=== PATIENT | female | born 1970 ===

== ENCOUNTER 2018-05-09 08:29 | Outpatient (CLI) | payer SELFPAY | END 2018-05-09 08:30 | disposition home or self-care (01) | LOC: C.USIC 08:29 ==

== ENCOUNTER 2018-05-18 08:53 | Observation (INO) | payer SELFPAY ==
[2018-05-18 08:58] VITALS: BMI 24.7
[2018-05-18] MEDS ORDERED: Sodium Chloride 0.9% 1,000 ML IV ONE (09:24)
--- NOTE | 2018-05-18 09:50 | C.PDOC ---
History Of Present Illness 47 years old female presents to ED for complaints of abdominal pain associated with intermittent [id number] vomiting and diarrhea that began 8 days ago. Patient also reports vaginal bleeding and feeling dizziness this morning. Patient states she had her LMP 8 days ago and the vaginal bleeding hasn't stopped since then. Patient also states she is undergoing iron diffusion therapy. Denies any other complaints. Time Seen by Provider: 05/18/18 09:04 Chief Complaint (Nursing): GI Problem History Per: Patient History/Exam Limitations: no limitations Onset/Duration Of Symptoms: Hrs Current Symptoms Are (Timing): Still Present Radiation Of Pain To:: None Associated Symptoms: Nausea, Vomiting, Diarrhea. denies: Fever, Chills Exacerbating Factors: None Alleviating Factors: None Last Bowel Movement: Today Recent travel outside of the [place]: No Abnormal Vaginal Bleeding: Yes Past Medical History Reviewed: Historical Data, Nursing Documentation, Vital Signs Vital Signs: Last Vital Signs Temp 99 F 05/18/18 08:58 Pulse 57 L 05/18/18 08:58 Resp 18 05/18/18 08:58 BP 120/85 05/18/18 08:58 Pulse Ox 100 05/18/18 08:58 - Medical History PMH: Anemia, Gastritis Denies: Depression, Chronic Kidney Disease Surgical History: Endoscopy - [facility] Procedures ESOPHAGOGASTRODUODENOSCOPY [EGD] W/CLOSED BIOPSY (11/10/14) NEBULIZER THERAPY (09/27/14) VITAL CAPACITY DETERMIN (09/27/14) Family History: States: No Known Family Hx - Social History Hx Tobacco Use: No Hx Alcohol Use: No Hx Substance Use: No - Immunization History Hx Tetanus Toxoid Vaccination: No Hx Influenza Vaccination: No Hx Pneumococcal Vaccination: No Review Of Systems Except As Marked, All Systems Reviewed And Found Negative. Constitutional: Negative for: Fever, Chills Gastrointestinal: Positive for: Nausea, Vomiting, Abdominal Pain, Diarrhea Genitourinary: Positive for: Vaginal Bleeding Skin: Negative for: Rash Neurological: Negative for: Weakness, Numbness Physical Exam - Physical Exam Appears: Non-toxic, No Acute Distress, Other (Generalized weakness ) Skin: Normal Color, Warm, Dry, No Rash Head: Atraumatic, Normacephalic Eye(s): bilateral: Normal Inspection, PERRL, EOMI Oral Mucosa: Moist Neck: Normal ROM, Supple Chest: Symmetrical, No Tenderness Cardiovascular: Rhythm Regular, No Murmur Respiratory: Normal Breath Sounds, No Rales, No Rhonchi, No Wheezing Gastrointestinal/Abdominal: Bowel Sounds, Soft, Tenderness (Epigastric ), No Guarding, No Rebound Extremity: Normal ROM Extremity: Bilateral: Atraumatic, Normal Color And Temperature, Normal ROM Pulses: Left Radial: Normal, Right Radial: Normal Neurological/Psych: Oriented x3, Normal Speech Gait: Steady ED Course And Treatment - Laboratory Results Result Diagrams: 05/18/18 10:03 05/18/18 10:03 O2 Sat by Pulse Oximetry: 100 (RA) Pulse Ox Interpretation: Normal Medical Decision Making Medical Decision Making: Plan: * IV Fluids * Toradol * Pepcid * Zofran * Urine culture * Blood work * Urinalysis Progress: Discussed case with Patient's PMD (Dr. Hodges) which accepted patient for admission. Patient still has abdominal pain. Disposition Doctor Will See Patient In The: Hospital Counseled Patient/Family Regarding: Studies Performed, Diagnosis - Disposition Disposition: HOSPITALIZED Disposition Time: 13:50 Condition: STABLE - POA Present On Arrival: None - Clinical Impression Clinical Impression: Abdominal pain, Bandemia - Scribe Statement The provider has reviewed the documentation as recorded by the Omariibverónica Villatoro All medical record entries made by the Omariibverónica were at my direction and personally dictated by me. I have reviewed the chart and agree that the record accurately reflects my personal performance of the history, physical exam, medical decision making, and the department course for this patient. I have also personally directed, reviewed, and agree with the discharge instructions and disposition.
[2018-05-18] MEDS ORDERED: Sodium Chloride 0.9% 1,000 ML ONE (10:03)
[2018-05-18 10:15] LABS: BASO # 0.1 K/uL (0.0-0.2); BASO % 0.3 % (0.0-2.0); EOS # 0.1 K/uL (0.0-0.7); EOS % 0.4 % (0.0-4.0); HEMOGLOBIN 12.3 g/dL (11.0-16.0); LYMPH # 1.1 K/uL (1.0-4.3); LYMPH % 6.7 % (20.0-40.0); MEAN CORPUSCULAR HEMOGLOBIN 29.3 pg (27.0-31.0); MEAN CORPUSCULAR HGB CONC 33.7 g/dL (33.0-37.0); MEAN PLATELET VOLUME 7.7 fL (7.2-11.7); MONO % 6.5 % (0.0-10.0); NEUT # 13.6 K/uL (1.8-7.0); NEUT % 86.1 % (50.0-75.0); PLATELET COUNT 383 K/uL (130-400); RBC 4.19 Mil/uL (3.80-5.20); RED CELL DISTRIBUTION WIDTH 14.3 % (11.5-14.5); WHITE BLOOD COUNT 15.8 K/uL (4.8-10.8)
[2018-05-18 10:21] LABS: SQUAMOUS EPITHIAL 5 /hpf (0-5); URINE BACTERIA RARE (<OCC); URINE BILIRUBIN NEGATIVE (NEGATIVE); URINE BLOOD 2+ (NEGATIVE); URINE CLARITY Hazy (Clear); URINE COLOR Yellow (YELLOW); URINE GLUCOSE (UA) NORMAL (Normal); URINE LEUKOCYTE ESTERASE NEG Leu/uL (Negative); URINE PROTEIN 1+ mg/dL (NEGATIVE); URINE UROBILINOGEN NORMAL mg/dL (0.2-1.0)
[2018-05-18 10:40] LABS: BANDS 18 % (0-2); LYMPHOCYTE 5 % (20-40); MONOCYTE 5 % (0-10); NEUTROPHIL 69 % (50-75); PLATELET ESTIMATE NORMAL (NORMAL); REACTIVE LYMPHOCYTES 3 % (0-0); TOTAL CELLS COUNTED 100
[2018-05-18 10:43] LABS: ALB/GLOB RATIO 1.5 (1.0-2.1); ALBUMIN 4.2 g/dL (3.5-5.0); ALT/SGPT 29 U/L (9-52); AST/SGOT 28 U/L (14-36); BLOOD UREA NITROGEN 10 mg/dL (7-17); CALCIUM 9.3 mg/dl (8.6-10.4); GFR NON-AFRICAN AMERICAN > 60; LIPASE 52 U/L (23-300)
[2018-05-18] MEDS ORDERED: Piperacillin/Tazobact 3.375 GM in Sodium Chloride 100 ML IVPB SCH (14:00)
[2018-05-18] MEDS ORDERED: Piperacillin/Tazobact 3.375 gm 100 ML IVPB ONE (14:36)
[2018-05-18] MEDS: Sodium Chloride 0.9% 1,000 ML IV SCH (15:00)
--- NOTE | 2018-05-18 15:06 | CP.PCM.HP ---
History of Present Illness - History of Present Illness History of Present Illness: Chief complaint Nausea abdominal pain and vomiting HPI: 46-year-old female with no significant past medical history came to the emerg ency room with a complaining of abdominal pain. Patient was seen by me in my office, 3 weeks ago at that time she was complaining of some abdominal pain. At the time sonogram of the abdomen was done, patient had an episode of abdominal pain, nausea. She was given omeprazole with minimal improvement. But for the last 1 week she started having more pain. She was started having some diarrhea for 3 days. Mostly diarrhea watery in character. No abdominal pain. She was feeling nausea but no vomiting noted. Today she was not able to eat anything. In the emergency room patient was feeling sick in the beginning, after an IV fluid she feeling better. Further evaluation in the emergency room noted to have a significant abnormalities needing hospitalization Past medical history none Patient had a history of gastritis in the the past. Allergy allergic to ciprofloxacin caused rash Personal history non-smoker nonalcoholic. Patient is currently working Patient is having good functional capacity Review of system: No headache, nausea noted, no chest pain or shortness of breath No abdominal pain currently. But patient is having pelvic pain. Fibroid uterus noted in the sonogram of the pelvis Patient is currently having diarrhea no leg swelling no rash On examination: Vital signs are stable otherwise. Chest good air entry Heart sounds are regular Abdomen nontender. No pedal edema CAT scan of the abdomen and pelvis currently pending Labs reviewed Elevated WBC noted, and also elevated bands noted Assessment and recommendation: 46-year-old female now came to the emergency room with acute abdominal pain. Underlying acute colitis cannot be ruled out. Awaiting for CAT scan of the abdomen. We will continue IV fluid. Antibiotic. GI evaluation. DVT and GI prophylaxis. Liquid diet and will follow the patient Present on Admission - Present on Admission Any Indicators Present on Admission: No History of DVT/PE: No History of Uncontrolled Diabetes: No Urinary Catheter: No Decubitus Ulcer Present: No Past Patient History - Tetanus Immunizations Tetanus Immunization: Up to Date - Past Medical History & Family History Past Medical History?: No - Past Social History Smoking Status: Never Smoked - CARDIAC Hx Cardiac Disorders: No - PULMONARY Hx Respiratory Disorders: No - NEUROLOGICAL Hx Neurological Disorder: No - HEENT Hx HEENT Problems: No - RENAL Hx Chronic Kidney Disease: No - ENDOCRINE/METABOLIC Hx Endocrine Disorders: No - HEMATOLOGICAL/ONCOLOGICAL Hx Anemia: Yes - INTEGUMENTARY Hx Dermatological Problems: No - MUSCULOSKELETAL/RHEUMATOLOGICAL Hx Musculoskeletal Disorders: No - GASTROINTESTINAL Hx Gastritis: Yes - GENITOURINARY/GYNECOLOGICAL Hx Genitourinary Disorders: Yes Other/Comment: Heavy menstrual bleeding - PSYCHIATRIC Hx Depression: No Hx Substance Use: No - SURGICAL HISTORY Hx Surgeries: Yes Hx Tubal Ligation: Yes - ANESTHESIA Hx Anesthesia: Yes Hx Anesthesia Reactions: No Hx Malignant Hyperthermia: No Meds Allergies/Adverse Reactions: Allergies Allergy/AdvReac Type Severity Reaction Status Date / Time ciprofloxacin [From Cipro] Allergy SWELLING Verified 05/18/18 08:56 Results - Vital Signs Recent Vital Signs: Last Vital Signs Temp 99.1 F 05/18/18 13:31 Pulse 62 05/18/18 13:31 Resp 18 05/18/18 08:58 BP 109/68 05/18/18 13:31 Pulse Ox 100 05/18/18 13:52 - Labs Result Diagrams: 05/18/18 10:03 05/18/18 10:03 Labs: Laboratory Results - last 24 hr 05/18/18 05/18/18 05/18/18 10:03 10:03 10:03 WBC 15.8 H D RBC 4.19 Hgb 12.3 Hct 36.4 MCV 87.0 D MCH 29.3 MCHC 33.7 RDW 14.3 Plt Count 383 MPV 7.7 Neut % (Auto) 86.1 H Lymph % (Auto) 6.7 L [place] % (Auto) 6.5 Eos % (Auto) 0.4 Baso % (Auto) 0.3 Neut # (Auto) 13.6 H Lymph # (Auto) 1.1 [place] # (Auto) 1.0 H Eos # (Auto) 0.1 Baso # (Auto) 0.1 Neutrophils % (Manual) 69 Band Neutrophils % 18 H* Lymphocytes % (Manual) 5 L Reactive Lymphs % 3 H Monocytes % (Manual) 5 Platelet Estimate Normal RBC Morphology Normal Sodium 138 Potassium 3.8 Chloride 107 Carbon Dioxide 21 L Anion Gap 14 BUN 10 Creatinine 0.5 L Est GFR ( Amer) > 60 Est GFR (Non-Af Amer) > 60 Random Glucose 98 Lactic Acid Calcium 9.3 Total Bilirubin 0.2 AST 28 ALT 29 Alkaline Phosphatase 72 Total Protein 6.9 Albumin 4.2 Globulin 2.8 Albumin/Globulin Ratio 1.5 Lipase 52 Urine Color Urine Clarity Urine pH Ur Specific [place] Urine Protein Urine Glucose (UA) Urine Ketones Urine Blood Urine Nitrate Urine Bilirubin Urine Urobilinogen Ur Leukocyte Esterase Urine WBC (Auto) Urine RBC (Auto) Ur Squamous Epith Cells Urine Bacteria Blood Type O NEGATIVE Antibody Screen Negative 05/18/18 05/18/18 10:10 11:24 WBC RBC Hgb Hct MCV MCH MCHC RDW Plt Count MPV Neut % (Auto) Lymph % (Auto) [place] % (Auto) Eos % (Auto) Baso % (Auto) Neut # (Auto) Lymph # (Auto) [place] # (Auto) Eos # (Auto) Baso # (Auto) Neutrophils % (Manual) Band Neutrophils % Lymphocytes % (Manual) Reactive Lymphs % Monocytes % (Manual) Platelet Estimate RBC Morphology Sodium Potassium Chloride Carbon Dioxide Anion Gap BUN Creatinine Est GFR ( Amer) Est GFR (Non-Af Amer) Random Glucose Lactic Acid 1.2 Calcium Total Bilirubin AST ALT Alkaline Phosphatase Total Protein Albumin Globulin Albumin/Globulin Ratio Lipase Urine Color Yellow Urine Clarity Hazy Urine pH 6.0 Ur Specific [place] 1.019 Urine Protein 1+ H Urine Glucose (UA) Normal Urine Ketones Negative Urine Blood 2+ H Urine Nitrate Negative Urine Bilirubin Negative Urine Urobilinogen Normal Ur Leukocyte Esterase Neg Urine WBC (Auto) 3 Urine RBC (Auto) 50 H Ur Squamous Epith Cells 5 Urine Bacteria Rare Blood Type Antibody Screen
[2018-05-18] MEDS ORDERED: Piperacill/Tazo 2.25gm in Dex 2.25 GM/50 ML BAG IVPB SCH (15:15)
[2018-05-18] MEDS ORDERED: Iodixanol 320 MG/ML 100 ML BOTTLE IV ONE (15:49)
--- NOTE | 2018-05-18 18:03 | CT ---
Date of service: 05/18/2018 PROCEDURE: CT Abdomen and Pelvis with contrast HISTORY: abd pain COMPARISON: Prior abdomen pelvis CT 04/25/2015. TECHNIQUE: Following the intravenous administration of iodinated contrast material, a CT examination of the abdomen and pelvis was performed from the domes of the diaphragms to the symphysis pubis with reformatted datasets provided in axial, sagittal and coronal planes. Oral contrast was not administered as per referring physician request.Contrast dose: Visipaque 320, 100 cc Radiation dose: Total exam DLP = 547.83 mGy-cm. This CT exam was performed using one or more of the following dose reduction techniques: Automated exposure control, adjustment of the mA and/or kV according to patient size, and/or use of iterative reconstruction technique. FINDINGS: LOWER THORAX: Unremarkable. LIVER: Tiny lucency left lobe liver with remainder unremarkable. GALLBLADDER AND BILE DUCTS: Unremarkable. PANCREAS: Unremarkable. No gross lesion or ductal dilatation. SPLEEN: Unremarkable. ADRENALS: Unremarkable. No mass. KIDNEYS AND URETERS: Unremarkable. No hydronephrosis. No solid mass. VASCULATURE: Unremarkable. No aortic aneurysm. No aortic atherosclerotic calcification or mural plaque present. BOWEL: Unremarkable. No obstruction. No gross mural thickening. APPENDIX: Normal appendix. PERITONEUM: Unremarkable. No free fluid. No free air. LYMPH NODES: Unremarkable. No enlarged lymph nodes. BLADDER: Unremarkable. REPRODUCTIVE: Small left adnexal cyst measuring 1 cm. None are seen at the right. Fluid in the left adnexal compartment caudal sac may be due to cyst rupture but is otherwise nonspecific appearing. BONES: No acute fracture. OTHER FINDINGS: None. IMPRESSION: Limited left adnexal fluid extending into cul-de-sac with a small left adnexal cyst potentially partially ruptured. Etiology fluid collection otherwise unclear. No additional acute abdominal or pelvic findings.
[2018-05-18] MEDS: Piperacill/Tazo 2.25gm in Dex 2.25 GM/50 ML BAG IVPB SCH (21:19)
[2018-05-19] MEDS: Sodium Chloride 0.9% 1,000 ML IV SCH ×3 (00:53→20:26)
[2018-05-19] MEDS: Piperacill/Tazo 2.25gm in Dex 2.25 GM/50 ML BAG IVPB SCH ×3 (06:03→21:47)
[2018-05-19 06:49] LABS: BASO # 0.1 K/uL (0.0-0.2); BASO % 0.6 % (0.0-2.0); EOS # 0.1 K/uL (0.0-0.7); EOS % 1.2 % (0.0-4.0); HEMOGLOBIN 11.5 g/dL (11.0-16.0); LYMPH % 21.2 % (20.0-40.0); MEAN CELL VOLUME 86.2 fL (81.0-99.0); MEAN CORPUSCULAR HEMOGLOBIN 29.7 pg (27.0-31.0); MEAN CORPUSCULAR HGB CONC 34.5 g/dL (33.0-37.0); MEAN PLATELET VOLUME 7.3 fL (7.2-11.7); MONO # 0.8 K/uL (0.0-0.8); MONO % 8.8 % (0.0-10.0); NEUT # 6.4 K/uL (1.8-7.0); NEUT % 68.2 % (50.0-75.0); RBC 3.88 Mil/uL (3.80-5.20); WHITE BLOOD COUNT 9.4 K/uL (4.8-10.8)
[2018-05-19 07:02] LABS: ALB/GLOB RATIO 1.3 (1.0-2.1); ALBUMIN 3.5 g/dL (3.5-5.0); ALT/SGPT 26 U/L (9-52); AST/SGOT 20 U/L (14-36); BLOOD UREA NITROGEN 7 mg/dL (7-17); CALCIUM 8.5 mg/dl (8.6-10.4); GFR NON-AFRICAN AMERICAN > 60
--- NOTE | 2018-05-19 11:03 | CP.PCM.CON ---
History of Present Illness - History of Present Illness History of Present Illness: 47 yo H female known to me from the past with h/o GERD, Gastritis presents with epigastric pain, diaarhea and vomiting for past two days. Was scehduled to have an EGD as outpatient later this month. No pain or diarrhea today.Had elevated white count and CT Scan reported as negative. Past Patient History - Tetanus Immunizations Tetanus Immunization: Up to Date - Past Medical History & Family History Past Medical History?: No - Past Social History Smoking Status: Never Smoked - CARDIAC Hx Cardiac Disorders: No - PULMONARY Hx Respiratory Disorders: No - NEUROLOGICAL Hx Neurological Disorder: No - HEENT Hx HEENT Problems: No - RENAL Hx Chronic Kidney Disease: No - ENDOCRINE/METABOLIC Hx Endocrine Disorders: No - HEMATOLOGICAL/ONCOLOGICAL Hx Anemia: Yes Hx Cirrhosis: No Hx Hepatitis A: No Hx Hepatitis B: No Hx Hepatitis C: No - INTEGUMENTARY Hx Dermatological Problems: No - MUSCULOSKELETAL/RHEUMATOLOGICAL Hx Musculoskeletal Disorders: No - GASTROINTESTINAL Hx Gastritis: Yes Hx Gastroesophageal Reflux: Yes - GENITOURINARY/GYNECOLOGICAL Hx Genitourinary Disorders: Yes Other/Comment: Heavy menstrual bleeding - PSYCHIATRIC Hx Depression: No Hx Substance Use: No - SURGICAL HISTORY Hx Surgeries: Yes Hx Tubal Ligation: Yes - ANESTHESIA Hx Anesthesia: Yes Hx Anesthesia Reactions: No Hx Malignant Hyperthermia: No Meds Allergies/Adverse Reactions: Allergies Allergy/AdvReac Type Severity Reaction Status Date / Time ciprofloxacin [From Cipro] Allergy SWELLING Verified 05/18/18 08:56 - Medications Medications: Current Medications Sodium Chloride (Sodium Chloride 0.9%) 1,000 mls @ 100 mls/hr IV .Q10H [facility] Last Admin: 05/19/18 00:53 Dose: 100 mls/hr Piperacillin Sod/Tazobactam Sod (Zosyn 2.25 Gm Iv Premix) 2.25 gm in 50 mls @ 100 mls/hr IVPB Q8H [facility]; Protocol Last Admin: 05/19/18 06:03 Dose: 100 mls/hr Influenza Virus Vaccine (Flucelvax Quad 0095-3190 Syr) 60 mcg IM .ONCE ONE Stop: 05/20/18 10:01 Pantoprazole Sodium (Protonix Inj) 40 mg IVP DAILY [facility] Last Admin: 05/19/18 10:22 Dose: 40 mg Pneumococcal Polyvalent Vaccine (Pneumovax 23 Vaccine) 0.5 ml IM .ONCE ONE Stop: 05/20/18 10:01 Physical Exam - Constitutional Appears: No Acute Distress - Head Exam Head Exam: ATRAUMATIC, NORMOCEPHALIC - Eye Exam Eye Exam: EOMI, PERRL - Respiratory Exam Respiratory Exam: NORMAL BREATHING PATTERN - Cardiovascular Exam Cardiovascular Exam: REGULAR RHYTHM, +S1 - GI/Abdominal Exam GI & Abdominal Exam: Normal Bowel Sounds, Soft. absent: Guarding, Rebound, Tenderness - Extremities Exam Extremities exam: Positive for: normal inspection Results - Vital Signs Recent Vital Signs: Last Vital Signs Temp 98.2 F 05/19/18 08:13 Pulse 60 05/19/18 08:13 Resp 18 05/19/18 08:13 BP 109/67 05/19/18 08:13 Pulse Ox 99 05/19/18 08:13 - Labs Result Diagrams: 05/19/18 06:43 05/19/18 06:43 Labs: Laboratory Results - last 24 hr 05/18/18 05/18/18 05/19/18 10:03 11:24 06:43 WBC 9.4 RBC 3.88 Hgb 11.5 Hct 33.4 L MCV 86.2 MCH 29.7 MCHC 34.5 RDW 14.0 Plt Count 362 MPV 7.3 Neut % (Auto) 68.2 Lymph % (Auto) 21.2 [place] % (Auto) 8.8 Eos % (Auto) 1.2 Baso % (Auto) 0.6 Neut # (Auto) 6.4 Lymph # (Auto) 2.0 [place] # (Auto) 0.8 Eos # (Auto) 0.1 Baso # (Auto) 0.1 Sodium Potassium Chloride Carbon Dioxide Anion Gap BUN Creatinine Est GFR ( Amer) Est GFR (Non-Af Amer) Random Glucose Lactic Acid 1.2 Calcium Phosphorus Magnesium Total Bilirubin AST ALT Alkaline Phosphatase Total Protein Albumin Globulin Albumin/Globulin Ratio Blood Type O NEGATIVE Antibody Screen Negative 05/19/18 06:43 WBC RBC Hgb Hct MCV MCH MCHC RDW Plt Count MPV Neut % (Auto) Lymph % (Auto) [place] % (Auto) Eos % (Auto) Baso % (Auto) Neut # (Auto) Lymph # (Auto) [place] # (Auto) Eos # (Auto) Baso # (Auto) Sodium 138 Potassium 3.5 L Chloride 108 H Carbon Dioxide 23 Anion Gap 10 BUN 7 Creatinine 0.6 L Est GFR ( Amer) > 60 Est GFR (Non-Af Amer) > 60 Random Glucose 87 Lactic Acid Calcium 8.5 L Phosphorus 3.7 Magnesium 1.7 Total Bilirubin 0.2 AST 20 ALT 26 Alkaline Phosphatase 57 Total Protein 6.2 L Albumin 3.5 Globulin 2.6 Albumin/Globulin Ratio 1.3 Blood Type Antibody Screen - Imaging and Cardiology CT scan - abdomen Status: Image reviewed by me, Report reviewed by me Assessment & Plan (1) Epigastric pain Assessment and Plan: patient with persistent epigastric pain and heartburn Plan for EGD in am Continue Protonix Status: Acute (2) Acute infective gastroenteritis Assessment and Plan: Appears to have infectious gastroenteritis with WBC now normal with hydration and abx. Check cultures as ordered Antibiotics as per PCP Status: Acute
[2018-05-20] MEDS: Piperacill/Tazo 2.25gm in Dex 2.25 GM/50 ML BAG IVPB SCH ×2 (05:33→14:16)
[2018-05-20] MEDS: Sodium Chloride 0.9% 1,000 ML IV SCH ×2 (08:16→16:23)
[2018-05-20] MEDS ORDERED: Influenza Vaccine 60 mcg/0.5 mL SYR (4YR UP) IM ONE (10:00)
[2018-05-20] MEDS ORDERED: Pneumococcal 23-Valent Vaccine IM ONE (10:00)
[2018-05-20] MEDS ORDERED: Propofol 10 mg/ml Inj (20 ML) ONE ×2 (10:40→10:51)
[2018-05-20] MEDS ORDERED: Lidocaine Hydrochloride 5 ML INJ ONE (10:40)
--- NOTE | 2018-05-20 10:56 | CP.PCM.PN ---
Subjective - Date & Time of Evaluation Date of Evaluation: 05/20/18 Time of Evaluation: 10:55 - Subjective Subjective: EGD: Reflux esophagitis Hiatal hernia Diffuse gastritis with erosions Rec/ advance diet Protonix or other PPI daily upon discharge Follow up with me in two weeks, appointment given for office. Antibiotics per PCP. Recall as needed Objective - Vital Signs/Intake and Output Vital Signs (last 24 hours): Temp Pulse Resp BP Pulse Ox 98.2 F 70 20 113/60 96 05/20/18 07:00 05/20/18 07:00 05/20/18 07:00 05/20/18 07:00 05/20/18 07:00 - Medications Medications: Current Medications Sodium Chloride (Sodium Chloride 0.9%) 1,000 mls @ 100 mls/hr IV .Q10H [facility] Last Admin: 05/20/18 08:16 Dose: Not Given Piperacillin Sod/Tazobactam Sod (Zosyn 2.25 Gm Iv Premix) 2.25 gm in 50 mls @ 100 mls/hr IVPB Q8H [facility]; Protocol Last Admin: 05/20/18 05:33 Dose: 100 mls/hr Pantoprazole Sodium (Protonix Ec Tab) 40 mg PO DAILY [facility] - Labs Labs: 05/19/18 06:43 05/19/18 06:43 Assessment and Plan (1) Epigastric pain Status: Acute (2) Acute infective gastroenteritis Status: Acute
[2018-05-20] MEDS ORDERED: Pantoprazole 40 mg EC Tab PO SCH (11:00)
[2018-05-20 15:56] VITALS: BP 105/64; PULSE 63; RESP 20; TEMP 99
[2018-05-20 18:11] VITALS: O2SAT 100
--- NOTE | 2018-05-20 18:49 | CP.PCM.DIS ---
Provider - Provider Date of Admission: 05/18/18 13:46 Attending physician: Massimo Macedo MD Consults: 05/19/18 09:07 Gastroenterology Consult Routine Comment: upper abdiominal pain Consulting Provider: Jason Owen Consulting Physician: Jason Owen Reason for Consult: upper abd pain Hospital Course - Lab Results Lab Results: Micro Results 05/18/18 14:52 Blood Blood Culture - Preliminary NO GROWTH AFTER 48 HOURS 05/18/18 14:15 Blood Blood Culture - Preliminary NO GROWTH AFTER 48 HOURS 05/18/18 10:10 Urine Random Urine Culture - Final 10-50,000 CFU/ML. MULTIPLE SPECIES. PROBABLE CONTAMINATION. Most Recent Lab Values WBC 9.4 K/uL (4.8-10.8) 05/19/18 06:43 RBC 3.88 Mil/uL (3.80-5.20) 05/19/18 06:43 Hgb 11.5 g/dL (11.0-16.0) 05/19/18 06:43 Hct 33.4 % (34.0-47.0) L 05/19/18 06:43 MCV 86.2 fL (81.0-99.0) 05/19/18 06:43 MCH 29.7 pg (27.0-31.0) 05/19/18 06:43 MCHC 34.5 g/dL (33.0-37.0) 05/19/18 06:43 RDW 14.0 % (11.5-14.5) 05/19/18 06:43 Plt Count 362 K/uL (130-400) 05/19/18 06:43 MPV 7.3 fL (7.2-11.7) 05/19/18 06:43 Neut % (Auto) 68.2 % (50.0-75.0) 05/19/18 06:43 Lymph % (Auto) 21.2 % (20.0-40.0) 05/19/18 06:43 [place] % (Auto) 8.8 % (0.0-10.0) 05/19/18 06:43 Eos % (Auto) 1.2 % (0.0-4.0) 05/19/18 06:43 Baso % (Auto) 0.6 % (0.0-2.0) 05/19/18 06:43 Neut # (Auto) 6.4 K/uL (1.8-7.0) 05/19/18 06:43 Lymph # (Auto) 2.0 K/uL (1.0-4.3) 05/19/18 06:43 [place] # (Auto) 0.8 K/uL (0.0-0.8) 05/19/18 06:43 Eos # (Auto) 0.1 K/uL (0.0-0.7) 05/19/18 06:43 Baso # (Auto) 0.1 K/uL (0.0-0.2) 05/19/18 06:43 Neutrophils % (Manual) 69 % (50-75) 05/18/18 10:03 Band Neutrophils % 18 % (0-2) H* 05/18/18 10:03 Lymphocytes % (Manual) 5 % (20-40) L 05/18/18 10:03 Reactive Lymphs % 3 % (0-0) H 05/18/18 10:03 Monocytes % (Manual) 5 % (0-10) 05/18/18 10:03 Platelet Estimate Normal (NORMAL) 05/18/18 10:03 RBC Morphology Normal 05/18/18 10:03 Sodium 138 mmol/L (132-148) 05/19/18 06:43 Potassium 3.5 mmol/L (3.6-5.2) L 05/19/18 06:43 Chloride 108 mmol/L (98-107) H 05/19/18 06:43 Carbon Dioxide 23 mmol/L (22-30) 05/19/18 06:43 Anion Gap 10 (10-20) 05/19/18 06:43 BUN 7 mg/dL (7-17) 05/19/18 06:43 Creatinine 0.6 mg/dL (0.7-1.2) L 05/19/18 06:43 Est GFR ( Amer) > 60 05/19/18 06:43 Est GFR (Non-Af Amer) > 60 05/19/18 06:43 Random Glucose 87 mg/dL (65-105) 05/19/18 06:43 Lactic Acid 1.2 mmol/L (0.7-2.1) 05/18/18 11:24 Calcium 8.5 mg/dl (8.6-10.4) L 05/19/18 06:43 Phosphorus 3.7 mg/dL (2.5-4.5) 05/19/18 06:43 Magnesium 1.7 mg/dL (1.6-2.3) 05/19/18 06:43 Total Bilirubin 0.2 mg/dL (0.2-1.3) 05/19/18 06:43 AST 20 U/L (14-36) 05/19/18 06:43 ALT 26 U/L (9-52) 05/19/18 06:43 Alkaline Phosphatase 57 U/L (38-126) 05/19/18 06:43 Total Protein 6.2 g/dL (6.3-8.3) L 05/19/18 06:43 Albumin 3.5 g/dL (3.5-5.0) 05/19/18 06:43 Globulin 2.6 gm/dL (2.2-3.9) 05/19/18 06:43 Albumin/Globulin Ratio 1.3 (1.0-2.1) 05/19/18 06:43 Lipase 52 U/L (23-300) 05/18/18 10:03 Urine Color Yellow (YELLOW) 05/18/18 10:10 Urine Clarity Hazy (Clear) 05/18/18 10:10 Urine pH 6.0 (5.0-8.0) 05/18/18 10:10 Ur Specific [place] 1.019 (1.003-1.030) 05/18/18 10:10 Urine Protein 1+ mg/dL (NEGATIVE) H 05/18/18 10:10 Urine Glucose (UA) Normal mg/dL (Normal) 05/18/18 10:10 Urine Ketones Negative mg/dL (NEGATIVE) 05/18/18 10:10 Urine Blood 2+ (NEGATIVE) H 05/18/18 10:10 Urine Nitrate Negative (NEGATIVE) 05/18/18 10:10 Urine Bilirubin Negative (NEGATIVE) 05/18/18 10:10 Urine Urobilinogen Normal mg/dL (0.2-1.0) 05/18/18 10:10 Ur Leukocyte Esterase Neg [place]/uL (Negative) 05/18/18 10:10 Urine WBC (Auto) 3 /hpf (0-5) 05/18/18 10:10 Urine RBC (Auto) 50 /hpf (0-3) H 05/18/18 10:10 Ur Squamous Epith Cells 5 /hpf (0-5) 05/18/18 10:10 Urine Bacteria Rare (<OCC) 05/18/18 10:10 Urine HCG, Qual Negative (NEGATIVE) 05/20/18 03:13 Stool Occult Blood Negative (NEGATIVE) 05/19/18 13:52 Stool Leukocytes, Qual Positive (NEGATIVE) H 05/18/18 13:46 Giardia Antigen Not detected (Not Detected) 05/18/18 13:46 Blood Type O NEGATIVE 05/18/18 10:03 Antibody Screen Negative 05/18/18 10:03 Discharge Exam - Head Exam Head Exam: ATRAUMATIC, NORMOCEPHALIC Discharge Plan - Follow Up Plan Condition: STABLE Disposition: HOME/ ROUTINE
== END 2018-05-20 19:45 | disposition home or self-care (01) ==
LOC: C.ER 08:53 → C.9E 13:46 → C.3T 15:22
PROVIDERS: ADMIT Internal Medicine; ATTEND Internal Medicine
DX: A09 Infectious gastroenteritis and colitis, unspecified (principal); K21.0 Gastro-esophageal reflux disease with esophagitis; K44.9 Diaphragmatic hernia without obstruction or gangrene; D64.9 Anemia, unspecified; K29.50 Unspecified chronic gastritis without bleeding
CPT/HCPCS: 36415; 43239; 74177; 80053; 81001; 81025; 82438; 83605; 83690; 83735; 84100; 84302; 84311; 84703; 85025; 86850; 86900; 87040; 87045; 87086; 87329; 88305; 89055; 96360; 96365; 96374; 99285; C9113; G0328; G0378; J1885; J2405; J2543; J7030; J7050; Q9967